=== PATIENT | male | born 1985 | race Caucasian/White ===

== ENCOUNTER 2023-05-13 02:28 | Outpatient (CLI) | payer BC, SELFPAY ==
[2023-05-13 09:27] LABS: HCT 43.1 % (40.0-50.0); HGB 14.5 g/dL (13.5-17.5); MCHC 33.6 % (32.0-36.0); MCV 92 fL (80-95); MPV 11.6 fL (8.0-11.0); Platelet Count 170 10^3/uL (130-400); RBC 4.68 10^6/uL (4.36-5.78); RDW 12.8 % (11.8-14.1); WBC 3.96 10^3/uL (4.4-10.8)
[2023-05-13 11:05] LABS: ALT 52 U/L (16-63); AST 29 U/L (15-37); Albumin 4.2 g/dL (3.4-5.0); Alkaline Phosphatase 72 U/L (46-116); BUN 21 mg/dL (7-18); Bilirubin, Total 0.3 mg/dL (0.2-1.0); Calcium 9.1 mg/dL (8.5-10.1); Calculated LDL 91 mg/dL (<100); Chloride 103 mmol/L (98-107); Cholesterol 140 mg/dL (<200); Estimated GFR 98.18 (mL/min/1.73m2); Glucose 105 mg/dL (74-106); HDL Cholesterol 37 mg/dL (40-60); Potassium 4.1 mmol/L (3.5-5.1); Sodium 140 mmol/L (136-145); Total Protein 7.7 g/dL (6.4-8.2); Triglyceride 61 mg/dL (<150)
[2023-05-13 12:24] LABS: Hemoglobin A1C 5.2 % (<5.7)
== END 2023-05-13 02:29 | disposition home or self-care (01) ==
PROVIDERS: Absent Provider Nurse Practitioner; PCP Nurse Practitioner; Referring Provider Nurse Practitioner; Visit Provider Nurse Practitioner
DX: I10 Essential (primary) hypertension (principal); E66.9 Obesity, unspecified; G47.33 Obstructive sleep apnea (adult) (pediatric); Z99.89 Dependence on other enabling machines and devices
CPT/HCPCS: 36415; 80053; 80061; 85027; 83036

== ENCOUNTER → 2023-08-03 01:03 | Outpatient (CLI) | payer BC, SELFPAY ==
--- NOTE | 2023-08-03 07:15 | DI.RAD_ITS ---
Exam(s) XR FOOT LT COMPLETE EXAM: XR FOOT LT COMPLETE CLINICAL HISTORY: Left foot pain,m79.672. TECHNIQUE: 2D digital imaging was performed. COMPARISON: No exams were available for comparison FINDINGS: 3 views No evidence of fracture nor diastasis of the Lisfranc joint. Mild degenerative changes in the great toe metatarsophalangeal joint. Metatarsal heads appear unremarkable. Small inferior calcaneal spur noted as is some calcification in the adjacent plantar fascia. There is also an enthesophyte on the posterior calcaneus Achilles insertion site. IMPRESSION: As above. DATA REPOSITORY: RADIATION DOSE DELIVERED:
== END ==
PROVIDERS: PCP Nurse Practitioner; Visit Provider Podiatrist
DX: M79.672 Pain in left foot (principal)
CPT/HCPCS: 73630

== ENCOUNTER → 2023-08-13 01:49 | Outpatient (CLI) | payer BC, SELFPAY ==
--- NOTE | 2023-08-13 13:15 | DI.MRI_ITS ---
Exam(s) MR LOWER EXTREMITY LT WO EXAM: MR LOWER EXTREMITY LT WO CLINICAL HISTORY: ? Lisfranc ligament injury,lt foot pain,m79.672,sprain tarsometarsal jt, TECHNIQUE: Multiplanar multisequence MRI was performed. COMPARISON: CR XR FOOT LT COMPLETE from 08/03/2023 FINDINGS: SKIN/SUBCUTANEOUS: There is no evidence of skin ulcer nor subcutaneous tract. No abnormal fluid flori ections in the heel fat pad nor elsewhere in the subcutaneous fat. MARROW/ARTICULATIONS:There is no abnormal intraosseous signal in the calcaneus and talus. 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 T here is no abnormal signal within the acute a form bones nor within the tarsometatarsal joints includ ing the Lisfranc joint. There is mild bone edema in the head and neck of the great toe metatarsal as well as within the proxi mal phalanx of the great toe, and there is a small joint effusion at the great toe metatarsophalangea l joint level but without obvious degenerative changes nor erosions at this articulation the more lat eral the 2 sesamoid bones subjacent to the great toe metatarsal head appears unremarkable. The more medial of the sesamoid bones is not identified. This is also the case on prior plain films of 2023.. The interphalangeal joint of the great toe appears unremarkable. There is also some bone edema evident in the head of the 2nd metatarsal and proximal phalanx of the 2 nd toe without evidence of avascular necrosis of the metatarsal head nor erosions. There is joint ef fusion in the 2nd metatarsophalangeal joint as well as within the proximal interphalangeal joint of t he 2nd toe. There is no abnormal signal within the middle and distal phalanges of the 2nd toe. No t endon tears nor tenosynovitis. Third, 4th, and 5th metatarsals appear unremarkable with no bone edema nor abnormal signal within the phalanges. No evidence of stress fractures in the metatarsals. There is no evidence of interdigital Ya's neuroma. LISFRANC LIGAMENT: Intact. There is also no abnormal intraosseous signal in the base of the 2nd meta tarsal nor in the medial cuneiform. Also no signal abnormality in the other metatarsal bases. MUSCLES: There is no evidence of abnormal signal nor mass in the visualized muscles. EXTRAMUSCULAR SOFT TISSUES: No abnormal signal, mass, or fluid collection. OTHER: IMPRESSION: 1. 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 2. There is bone edema and metatarsophalangeal joint effusions at the 1st and 2nd metatarsophalange al joints without degenerative changes nor erosions in these joints and probably related to altered b iomechanics. 3. There are no tendon tears nor tenosynovitis. 4. There is absence of the more medial of the 2 sesamoid bones subjacent to the 1st metatarsal head. Possibly developmental. DATA REPOSITORY:
--- NOTE | 2023-08-13 18:33 | DI.VRAD_ITS ---
PROCEDURE INFORMATION: Exam: MR Left Lower Extremity Other Than Joint Without Contrast; Foot Exam date and time: 08/13/2023 12:27 PM Age: 37 years old Clinical indication: ? Lisfranc ligament injury, lt foot pain, sprain tarsometarsal jt, TECHNIQUE: Imaging protocol: Magnetic resonance imaging of the left lower extremity without contrast. Exam focused on the foot. COMPARISON: CR XR FOOT LT COMPLETE 08/03/2023 1:02 PM FINDINGS: Bones/joints: There is mild edema noted within the 2nd proximal phalanx and to a lesser extent within the base of the 1st proximal phalanx and head of the 2nd metatarsal bone. There is cortical irregularity at the plantar aspect of the 2nd proximal phalanx, concerning for acute fracture (image 17 of series 5001). There is apparent discontinuity of the plantar plate at the 1st and 2nd metatarsophalangeal joints, concerning for tear. LIGAMENTS: Lisfranc ligament: No evidence of tear. TENDONS: Flexor tendons of distal foot: No evidence of tear. Extensor tendons of distal foot: There is mild elevation of the extensor tendons at the 2nd, 1st and 3rd metatarsophalangeal joints, concerning for extensor [place] injury. Soft tissues: Soft tissue edema noted in the dorsal aspect of the metatarsophalangeal joints and to a lesser extent at the plantar aspect. Plantar fascia: Unremarkable as visualized. IMPRESSION: 1. Osseous edema within the distal foot as detailed above, with concern for fracture at the base of the 2nd proximal phalanx. 2. Possible plantar plate injury at the 1st and 2nd metatarsophalangeal joints. 3. Elevation of the extensor tendons at the 1st, 2nd and 3rd metatarsophalangeal joints, concerning for extensor [place] injury. Correlate with physical examination findings. Dictated and Authenticated by: Lamar Aleman MD. Ordering:LEROY Marti MD
== END ==
PROVIDERS: PCP Nurse Practitioner; Visit Provider Podiatrist
DX: S93.622A Sprain of tarsometatarsal ligament of left foot, initial encounter (principal); M79.672 Pain in left foot; X58.XXXA Exposure to other specified factors, initial encounter
CPT/HCPCS: 73718

== ENCOUNTER 2023-09-08 04:47 | Outpatient (CLI) | payer BC, SELFPAY ==
[2023-09-08 10:05] LABS: Abs Immature Grans 0.02 10^3/uL (0.0-0.06); Absolute Basophil Count 0.05 10^3/uL (0.0-0.2); Absolute Eosinophil Count 0.06 10^3/uL (0.0-0.7); Absolute Lymphocyte Count 1.62 10^3/uL (1.2-3.4); Absolute Monocyte Count 0.42 10^3/uL (0.1-0.8); Absolute Neutrophil Count 2.54 10^3/uL (1.2-6.7); Basophils % 1.1; Eosinophils % 1.3; HCT 44.6 % (40.0-50.0); HGB 14.6 g/dL (13.5-17.5); Immature Grans % 0.4; Lymphocytes % 34.4; MCH 30.4 pg (27.0-33.0); MCHC 32.7 % (32.0-36.0); MCV 93 fL (80-95); MPV 11.6 fL (8.0-11.0); Monocytes % 8.9; Neutrophils % 53.9; Platelet Count 177 10^3/uL (130-400); RBC 4.81 10^6/uL (4.36-5.78); RDW 12.5 % (11.8-14.1); WBC 4.71 10^3/uL (4.4-10.8)
== END 2023-09-08 04:48 | disposition home or self-care (01) ==
LOC: LBO 04:48
PROVIDERS: Absent Provider Nurse Practitioner; PCP Nurse Practitioner; Referring Provider Nurse Practitioner; Visit Provider Nurse Practitioner
DX: I10 Essential (primary) hypertension (principal); R79.89 Other specified abnormal findings of blood chemistry
CPT/HCPCS: 36415; 85025

== ENCOUNTER 2024-05-22 03:10 | Outpatient (CLI) | payer BC, SELFPAY ==
[2024-05-22 07:35] LABS: HCT 40.8 % (40.0-50.0); HGB 13.6 g/dL (13.5-17.5); MCH 30.8 pg (27.0-33.0); MCHC 33.3 % (32.0-36.0); MCV 92 fL (80-95); MPV 11.9 fL (8.0-11.0); Platelet Count 160 10^3/uL (130-400); RBC 4.42 10^6/uL (4.36-5.78); RDW 12.9 % (11.8-14.1); RDW-SD 43.7 fL; WBC 4.14 10^3/uL (4.4-10.8)
[2024-05-22 07:46] LABS: Hemoglobin A1C 5.3 % (<5.7)
[2024-05-22 07:52] LABS: ALT 35 U/L (16-63); AST 28 U/L (15-37); Alkaline Phosphatase 95 U/L (46-116); Anion Gap 5.7 mmol/L (3-11); BUN 23 mg/dL (7-18); Bilirubin, Total 0.36 mg/dL (0.2-1.0); CO2 30.3 mmol/L (21.0-32.0); CREATININE 1.1 mg/dL (0.70-1.30); Calcium 9.1 mg/dL (8.5-10.1); Calculated LDL 100 mg/dL (<100); Chloride 103 mmol/L (98-107); Cholesterol 166 mg/dL (<200); Estimated GFR 87.03 (mL/min/1.73m2); Glucose 104 mg/dL (74-106); HDL Cholesterol 41 mg/dL (40-60); Potassium 3.7 mmol/L (3.5-5.1); Sodium 139 mmol/L (136-145); Total Protein 7.4 g/dL (6.4-8.2); Triglyceride 129 mg/dL (<150)
[2024-05-25 17:05] LABS: Apolipoprotein B, Serum 88 mg/dL; Beta VLDL Cholesterol Not Detected mg/dL (<15); Beta VLDL Triglycerides Not Detected mg/dL (<15); Cholesterol, Total, CDC 169 mg/dL; Chylomicron Cholesterol Not Detected; Chylomicron Triglycerides Not Detected; HDL Cholesterol, CDC 34 mg/dL (>=40); LDL Cholesterol 107 mg/dL; LDL Triglycerides 41 mg/dL (<=50); Lp(a) Cholesterol <5 mg/dL (<5); LpX Not detected; Triglycerides, CDC 147 mg/dL; VLDL Cholesterol 28 mg/dL (<30); VLDL Triglycerides 88 mg/dL (<120)
== END 2024-05-22 03:11 | disposition home or self-care (01) ==
LOC: LBO 03:10
PROVIDERS: PCP Nurse Practitioner; Referring Provider Nurse Practitioner; Visit Provider Nurse Practitioner
DX: F90.9 Attention-deficit hyperactivity disorder, unspecified type (principal); G47.33 Obstructive sleep apnea (adult) (pediatric); Z99.89 Dependence on other enabling machines and devices; I10 Essential (primary) hypertension; Z82.49 Family history of ischemic heart disease and other diseases of the circulatory system; E66.9 Obesity, unspecified
CPT/HCPCS: 36415; 80053; 80061; 85027; 82172; 82664; 83036